=== PATIENT | female | born 1975 | race Two or more races ===

== ENCOUNTER 2016-06-26 09:05 | Emergency (ER) | payer OTHER ==
[2016-06-26 09:11] VITALS: BP 132/78; PULSE 54; TEMP 98; BMI 36.3
[2016-06-26] MEDS ORDERED: OXYCODONE/APAP 5/325MG COMBO TABLET PO ONE (10:11)
[2016-06-26] MEDS ORDERED: OXYCODONE/APAP 5/325MG COMBO TABLET ONE (10:14)
== END 2016-06-26 13:02 | disposition home or self-care (01) ==
LOC: JERFT 09:05
DX: S30.0XXA Contusion of lower back and pelvis, initial encounter (principal); W10.9XXA Fall (on) (from) unspecified stairs and steps, initial encounter; Y93.9 Activity, unspecified; Y92.009 Unspecified place in unspecified non-institutional (private) residence as the place of occurrence of the external cause; E11.9 Type 2 diabetes mellitus without complications; I10 Essential (primary) hypertension
CPT/HCPCS: 72100-TC; 73523-TC; 99281-25

== ENCOUNTER 2017-11-21 09:10 | Emergency (ER) | payer OTHER ==
[2017-11-21 09:14] VITALS: TEMP 98.5; BMI 36.0
--- NOTE | 2017-11-21 09:16 | PDOC ---
History of Present Illness - General Chief Complaint: Pain Stated Complaint: "SWOLLEN GLANDS" Time Seen by Provider: 11/21/17 09:16 History Source: Patient Exam Limitations: No Limitations - History of Present Illness Initial Comments: 11/21/17 10:39 Ms Ponce is a 42 yo F who presents to the ER with a complaint of feeling ill and having swollen glands and feeling ill pt states that almost 2 weeks ago, she used a shampoo and thinks it irritated her scalp She has been trying to use home remedies with little improvement She has noted that her scalp is scabbed Over the past 5 days, she has notes swelling of her glands in her neck Patient states she has also had diffuse headaches, particularly on her scalp where she's noticed scabbing. No fevers or chills. She has noted no body aches. No recent travel. No cough, she has noted sneezing. She hasn't taking Tylenol and Motrin with little improvement. She also has noted nausea, vomiting (4 days ago as well as yesterday). She's noted decreased by mouth intake. She is noted lymph nodes in her neck and beneath her jaw. No lymph nodes in the supraclavicular area, no lymph nodes in her groin or under arms. She became concerned because she was diagnosed as having leukemia approximately 3 years ago and has never been treated, was told by her oncologist that she needed to be cautious about swollen lymph nodes. PMH: Hypertension, prediabetes, chronic lymphocytic leukemia (diagnosed 3 years ago, never treated, not currently being treated) Past surgical history: Denies PMD: [facility] [place]: Dr. [phone] Patient's: HCTZ, ramipril GENERAL/CONSTITUTIONAL: Yes: weakness No: fever, chills, loss of appetite. HEAD, EYES, EARS, NOSE AND THROAT: Yes: lymphadenopathy No: change in vision, ear pain, discharge, sore throat, throat swelling. CARDIOVASCULAR: No: chest pain, lightheadedness, palpitations, syncope RESPIRATORY: No: cough, shortness of breath, wheezing, hemoptysis, stridor. GASTROINTESTINAL: Yes: nausea, vomiting No: diarrhea, abdominal pain GENITOURINARY: No: dysuria, hematuria, frequency, urgency, flank pain. MUSCULOSKELETAL: No: back pain, neck pain, joint pain, muscle swelling or pain SKIN AND BREASTS: No: lesions, pallor, rash or easy bruising. NEUROLOGIC: No: headache, vertigo, paresthesias, weakness ENDOCRINE: No: unexplained weight gain or loss HEMATOLOGIC/LYMPHATIC: No: anemia, easy bleeding, swelling nodes. GENERAL: The patient is in no acute distress. HEAD: Normal with no signs of trauma. EYES: PERRLA, EOMI, sclera anicteric, conjunctiva clear. ENT: Ears normal, nares patent, oropharynx clear without exudates. Moist mucous membranes. Uvula midline, no tonsillar enlargement or exudate NECK: Normal range of motion, supple (+) lymphadenopathy noted LUNGS: Breath sounds equal, clear to auscultation bilaterally. No wheezes, and no crackles. HEART:Regular rate and rhythm, normal S1 and S2 without murmur, rub or gallop. ABDOMEN: Soft, nontender, normoactive bowel sounds. No guarding, no rebound. No masses palpable. EXTREMITIES: Normal range of motion, no edema. No clubbing or cyanosis. No erythema, or tenderness. NEUROLOGICAL: Cranial nerves II through XII grossly intact. Normal speech. No focal neurological deficits. MUSCULOSKELETAL: Back non-tender to palpation, no CVA tenderness SKIN: Warm, Dry, normal turgor, no rashes or lesions noted. 11/21/17 10:53 11/22/17 08:28 Past History - Past Medical History Allergies/Adverse Reactions: Allergies Allergy/AdvReac Type Severity Reaction Status Date / Time amoxicillin [From Augmentin] Allergy Verified 11/21/17 21:24 clavulanic acid Allergy Verified 11/21/17 21:25 [From Augmentin] Home Medications: Ambulatory Orders Amoxicillin/Potassium Clav [Augmentin 875-125 Tablet] 1 each PO BID #14 tablet 11/21/17 Hydrochlorothiazide [Hctz -] 25 mg PO DAILY 11/21/17 Ondansetron HCl [Zofran] 4 mg PO BID PRN #10 tablet 11/21/17 Ramipril mg PO DAILY 11/21/17 Anemia: No (LEUKEMIA) Cancer: (LEUKEMIA) COPD: No Diabetes: Yes (PREDIABETES) HTN: Yes - Suicide/Smoking/Psychosocial Hx Smoking History: Never smoked Have you smoked in the past 12 months: No Hx Alcohol Use: No Drug/Substance Use Hx: No Substance Use Type: Alcohol *Physical Exam - Vital Signs Last Vital Signs Temp Pulse Resp BP Pulse Ox 98.5 F 60 18 166/97 100 11/21/17 09:10 11/21/17 09:10 11/21/17 09:10 11/21/17 09:10 11/21/17 09:10 ED Treatment Course - LABORATORY CBC & Chemistry Diagram: 11/21/17 09:45 11/21/17 09:45 Medical Decision Making - Medical Decision Making 11/21/17 10:39 Laboratory Tests 11/21/17 11/21/17 09:45 09:45 WBC 22.4 H Hgb 11.9 Hct 35.3 Plt Count 214 Sodium 135 L Potassium 3.6 Chloride 102 Carbon Dioxide 26 BUN 7 Creatinine < 0.8 Random Glucose 123 H AST 45 H ALT 51 H 11/21/17 10:52 Pt states she feels a bit better Call placed to pt Oncologist for further information Unclear if leukocytosis is due to leukemia or acute infectious pathology??? 11/21/17 11:13 Second call placed to Dr Crespo 11/21/17 11:58 Laboratory Tests 11/21/17 11/21/17 11/21/17 09:45 09:45 10:40 WBC 22.4 H Hgb 11.9 Hct 35.3 Plt Count 214 Sodium 135 L Potassium 3.6 Chloride 102 Carbon Dioxide 26 BUN 7 Creatinine < 0.8 Random Glucose 123 H AST 45 H ALT 51 H Urine Ketones Negative Urine Blood Negative Urine Nitrite Negative Ur Leukocyte Esterase Negative Urine HCG, Qual 11/21/17 10:40 WBC Hgb Hct Plt Count Sodium Potassium Chloride Carbon Dioxide BUN Creatinine Random Glucose AST ALT Urine Ketones Urine Blood Urine Nitrite Ur Leukocyte Esterase Urine HCG, Qual Negative No call back received from pt pmd UA negative Pt states her symptoms have improved and her WMC is typically 21-25 Pending CXR will give Augmentin for scalp issue as I wonder if this is causing a reactive lymphadenopathy? 11/21/17 12:24 I have confirmed with this patient's oncologist that her white blood cell count is stable, at her baseline. Plans are still pending. Lab was contacted regarding this number. X-ray still pending 11/21/17 13:00 CXR as read by me No acute infiltrate Will discharge to home Will ask pt to follow up with Dr Crespo Will give augmentin for scalp irritation *DC/Admit/Observation/Transfer Diagnosis at time of Disposition: Scalp irritation - Discharge Dispostion Disposition: HOME Condition at time of disposition: Stable Decision to Admit order: No - Prescriptions Prescriptions: Amoxicillin/Potassium Clav [Augmentin 875-125 Tablet] 1 each PO BID #14 tablet Ondansetron HCl [Zofran] 4 mg PO BID PRN #10 tablet PRN Reason: Nausea - Referrals - Patient Instructions Printed Discharge Instructions: DI for Rash Additional Instructions: Ms Ponce Thanks for coming in to the ER Please be sure to follow up with Dr Crespo Please monitor your temperature Please take antibiotics as prescribed Return to the ER for worsening symptoms, any other concerns or complaints - Post Discharge Activity Forms/Work/School Notes: Back to Work
[2017-11-21] MEDS ORDERED: ACETAMINOPHEN 1000 MG/100 ML VIAL (NON FORMULARY) IVPB ONE (09:41)
[2017-11-21] MEDS ORDERED: SODIUM CHLORIDE 1,000 ML IV STA (09:41)
[2017-11-21] MEDS ORDERED: ACETAMINOPHEN INJECTION 100 ML IVPB ONE (09:59)
[2017-11-21 10:14] LABS: HEMATOCRIT 35.3 % (32.4-45.2); HEMOGLOBIN 11.9 GM/dl (10.7-15.3); MCH 29.2 pg (25.7-33.7); MCHC 33.8 g/dl (32.0-36.0); MEAN CELL VOLUME 86.5 fl (80-96); MEAN PLT VOLUME 10.2 fl (7.5-11.1); PLATELET COUNT 214 K/MM3 (134-434); RBC 4.08 M/mm3 (3.60-5.2); RDW 15.1 % (11.6-15.6); WHITE BLOOD COUNT 22.4 K/mm3 (4.0-10.8)
[2017-11-21 10:24] LABS: ADD RBC MORPHOLOGY YES; ALBUMIN 3.5 g/dl (3.5-5.0); ALK PHOS 77 U/L (32-92); ANION GAP 7 (8-16); BLOOD UREA NITROGEN 7 mg/dl (7-18); CALCIUM 8.6 mg/dl (8.4-10.2); CHLORIDE 102 mmol/L (98-107); CO2 26 mmol/L (22-28); GLUCOSE,RANDOM 123 mg/dl (74-106); POTASSIUM 3.6 mmol/L (3.5-5.1); SGOT/AST 45 U/L (10-42); SGPT/ALT 51 U/L (10-40); SODIUM 135 mmol/L (136-145); TOT PROT 6.9 g/dl (6.4-8.3)
[2017-11-21 10:31] LABS: BILIRUBIN,TOTAL < 0.5 mg/dl (0.2-1.0); CREATININE < 0.8 mg/dl (0.6-1.3)
[2017-11-21 10:57] VITALS: BP 127/67; PULSE 61
[2017-11-21 11:33] LABS: PLATELET ESTIMATE ADEQUATE
[2017-11-21 11:55] LABS: PH,URINE 6.5 (4.5-8); URINE APPEARANCE Clear; URINE BILIRUBIN Negative (NEGATIVE); URINE BLOOD Negative (NEGATIVE); URINE COLOR YELLOW; URINE GLUCOSE (UA) Negative (NEGATIVE); URINE KETONE Negative (NEGATIVE); URINE LEUK ESTERASE Negative (NEGATIVE); URINE NITRITE Negative (NEGATIVE); URINE PROTEIN Negative (NEGATIVE); URINE UROBILINOGEN 0.2 (0.2-1.0)
== END 2017-11-21 13:20 | disposition home or self-care (01) ==
LOC: FER 09:10
PROC: 3E033NZ Introduction of Analgesics, Hypnotics, Sedatives into Peripheral Vein, Percutaneous Approach (ICD-10-PCS; principal; 2017-11-21)
PROC: 3E0337Z Introduction of Electrolytic and Water Balance Substance into Peripheral Vein, Percutaneous Approach (ICD-10-PCS; 2017-11-21)
DX: R23.9 Unspecified skin changes (principal)
CPT/HCPCS: 36415; 71046-TC-FY; 80053; 81003; 84703; 85025; 86308; 87040; 87070; 87086; 87430; 99285-25; J0131; J7030

== ENCOUNTER 2017-11-21 20:34 | Emergency (ER) | payer OTHER ==
[2017-11-21 20:39] VITALS: BP 151/88; PULSE 82; TEMP 98.4; BMI 36.0
--- NOTE | 2017-11-21 21:06 | PDOC ---
History of Present Illness - General History Source: Patient Exam Limitations: No Limitations - History of Present Illness Initial Comments: 11/21/17 21:14 A portion of this note was documented by scribe services under my direction. I have reviewed the details of the note, within reason, and agree with the documentation. The case summary and management plan written by me. Assessment and plan: This is a 42-year-old female who was here earlier for some scalp discomfort secondary to a shampoo that she thought maybe had burned her scalp. Patient was started on some Augmentin for questionable scalp infection however patient took her first dose of Augmentin and felt like her throat was closing up so she came in for evaluation. On my evaluation there was no angioedema of the oropharynx there was good air entry bilateral rales no wheezing She was in no distress. Patient was offered ibuprofen she said she takes 2 800 mg at a time so was given a dose even though is a large dose patient is 104 kg woman and tolerates a dose well according to her. Patient was told to stop the Augmentin and get some yqau-zuz-afojxmx antibiotic ointment and put it on the scalp instead of taking antibiotics as it does not appear to be infected there was no purulent discharge, minimal erythema and no swelling. Patient however does have a viral pharyngitis, and throat her throat and pharynx discomfort are likely related to the viral pharyngitis as there is no evidence of an acute ALLERGIC reaction. Patient discharged home <Tony Mcbride I - Last Filed: 11/21/17 21:14> - History of Present Illness Initial Comments: 11/21/17 21:18 The patient is a 42 year old female, with a significant PMH of leukemia who presents to the emergency department with throat discomfort after taking medication today. Patient was seen earlier for some scalp discomfort and irritation and was started on augmentin. Patient reports she felt her throat closing up approximately 30 minutes after taking first dose of augmentin. Patient denies any other complaints. The patient denies chest pain, shortness of breath, headache and dizziness. Denies fever, chills, nausea, vomit, diarrhea and constipation. Denies dysuria, frequency, urgency and hematuria. Allergies: NKA Past surgical history: None reported. Social history: No reported alcohol, drug, or cigarette use. Adult ROS General: No fevers or chills, no weakness, no weight loss HEENT: (+) Throat discomfort. No change in vision. No ear pain CardioVascular: No chest pain or shortness of breath Respiratory:No cough, or wheezing. Gastrointestinal: no nausea, vomiting, diarrhea or constipation, No rectal bleeding Genitourinary: No dysuria, hematuria, or frequency Musculoskeletal: No joint or muscle pain or swelling Neurologic: No headache, vertigo, dizziness or loss of consciousness Psychiatric: nor depression Skin: No rashes or easy bruising Endocrine: no increased thirst or abnormal weight change Allergic: no skin or latex allergy All other systems reviewed and normal Adult Exam: General: Well-nourished well-developed individual, no acute distress HEENT: Throat: (+) Mild erythema. Normal, tonsils normal, no exudates. Neck: Supple, no meningeal signs, no lymphadenopathy Eyes::Pupils equal reactive and round, extraocular motion intact Chest: Nontender to palpation Cardiac: S1-S2 normal, regular rate and rhythm, no murmurs rubs or gallops Respiratory: Lungs clear to auscultation bilateral Abdomen: Soft, nondistended, normal bowel sounds, nontender to palpation diffusely Extremities: Warm, dry, no cyanosis, clubbing, or edema Skin: No rashes Neuro: Alert and oriented x3, nonfocal exam, grossly intact, normal gait Psych: Normal mood and affect <Gerri Bowers - Last Filed: 11/21/17 21:21> - General Chief Complaint: Respiratory Stated Complaint: "THROAT DISCOMFORT" AFTER TAKING ANTIBIOTICS Time Seen by Provider: 11/21/17 20:45 Past History - Past Medical History Anemia: (LEUKEMIA) Cancer: (LEUKEMIA) COPD: No Diabetes: Yes (PREDIABETES) HTN: Yes - Suicide/Smoking/Psychosocial Hx Smoking History: Never smoked Have you smoked in the past 12 months: No Hx Alcohol Use: No Drug/Substance Use Hx: No Substance Use Type: Alcohol <Tony Mcbride I - Last Filed: 11/21/17 21:14> <Gerri Bowers - Last Filed: 11/21/17 21:21> - Past Medical History Allergies/Adverse Reactions: Allergies Allergy/AdvReac Type Severity Reaction Status Date / Time No Known Allergies Allergy Verified 11/21/17 20:35 Home Medications: Ambulatory Orders Amoxicillin/Potassium Clav [Augmentin 875-125 Tablet] 1 each PO BID #14 tablet 11/21/17 Hydrochlorothiazide [Hctz -] 25 mg PO DAILY 11/21/17 Ondansetron HCl [Zofran] 4 mg PO BID PRN #10 tablet 11/21/17 Ramipril mg PO DAILY 11/21/17 *Physical Exam - Vital Signs Last Vital Signs Temp Pulse Resp BP Pulse Ox 98.4 F 82 18 151/88 100 11/21/17 20:34 11/21/17 20:34 11/21/17 20:34 11/21/17 20:34 11/21/17 20:34 <Tony Mcbride I - Last Filed: 11/21/17 21:14> - Vital Signs Last Vital Signs Temp Pulse Resp BP Pulse Ox 98.4 F 82 18 151/88 100 11/21/17 20:34 11/21/17 20:34 11/21/17 20:34 11/21/17 20:34 11/21/17 20:34 <Gerri Bowers - Last Filed: 11/21/17 21:21> *DC/Admit/Observation/Transfer - Discharge Dispostion Decision to Admit order: No <Tony Mcbride I - Last Filed: 11/21/17 21:14> - Attestations Scribe Attestion: 11/21/17 21:21 Documentation prepared by Gerri Bowers, acting as manager medical for Tony Mcbride MD. <Gerri Bowers - Last Filed: 11/21/17 21:21> Diagnosis at time of Disposition: Acute viral pharyngitis - Discharge Dispostion Condition at time of disposition: Stable - Patient Instructions Additional Instructions: Continue to take the ibuprofen as needed for pain or fevers. Get some phtr-ikn-iatzukw antibiotic ointment applied to the area of her scalp that is affected. Return to the emergency department immediately with ANY new, persistent or worsening symptoms. Continue any medications as previously prescribed by your physician. You should follow up with your primary doctor as soon as possible regarding today's emergency department visit. . Please make sure your doctor reviews the results of your emergency evaluation. Thank you for coming to the Emergency Department today for your care. It was a pleasure to see you today. Please note that your evaluation is INCOMPLETE until you follow-up with your doctor.
[2017-11-21] MEDS ORDERED: IBUPROFEN 400 MG TABLET (FP) PO ONE ×2 (21:14→21:23)
[2017-11-21] MEDS ORDERED: IBUPROFEN 600 MG TABLET (FP) PO ONE (21:23)
--- NOTE | 2017-11-21 21:36 | PDOC ---
*Physical Exam - Vital Signs Last Vital Signs Temp Pulse Resp BP Pulse Ox 98.4 F 82 18 151/88 100 11/21/17 20:34 11/21/17 20:34 11/21/17 20:34 11/21/17 20:34 11/21/17 20:34 <Tony Mcbride I - Last Filed: 11/21/17 21:35> - Vital Signs Last Vital Signs Temp Pulse Resp BP Pulse Ox 98.4 F 82 18 151/88 100 11/21/17 20:34 11/21/17 20:34 11/21/17 20:34 11/21/17 20:34 11/21/17 20:34 - Physical Exam Comments: 11/21/17 21:37 Adult Exam: General: Well-nourished well-developed individual, no acute distress HEENT: Scalp: (+) Mild erythema. No purulent discharge. Throat: (+) Posterior mild erythema. Tonsils are not enlarged, no exudates. Neck: Supple, no meningeal signs, (+) Submandibular lymphadenopathy. No angioedema. Eyes::Pupils equal reactive and round, extraocular motion intact Chest: Nontender to palpation Cardiac: S1-S2 normal, regular rate and rhythm, no murmurs rubs or gallops Respiratory: Good air entry. No wheezing. Extremities: Warm, dry, no cyanosis, clubbing, or edema Skin: No rashes Neuro: Alert and oriented x3, nonfocal exam, grossly intact, normal gait Psych: Normal mood and affect <Gerri Bowers - Last Filed: 11/21/17 21:40> ED Treatment Course - Medications Given in the ED: ED Medications Discontinued Medications Generic Name Dose Route Start Last Admin Trade Name Freq PRN Reason Stop Dose Admin Ibuprofen 1,600 mg 11/21/17 21:14 11/21/17 21:27 Motrin - PO 11/21/17 21:15 1,600 mg ONCE ONE Administration <Tony Mcbride I - Last Filed: 11/21/17 21:35> - Medications Given in the ED: ED Medications Discontinued Medications Generic Name Dose Route Start Last Admin Trade Name Freq PRN Reason Stop Dose Admin Ibuprofen 1,600 mg 11/21/17 21:14 11/21/17 21:27 Motrin - PO 11/21/17 21:15 1,600 mg ONCE ONE Administration <Gerri Bowers - Last Filed: 11/21/17 21:40> Progress Note - Progress Note Progress Note: The purpose of this chart is solely for documentation of the physical exam on this patient as I accidentally closed the other chart prior to completion of the physical exam.. <Tony Mcbride I - Last Filed: 11/21/17 21:35> *DC/Admit/Observation/Transfer <Tony Mcbride I - Last Filed: 11/21/17 21:35> - Attestations Scribe Attestion: 11/21/17 21:40 Documentation prepared by Gerri Bowers, acting as bio medical technician for Tony Mcbride MD. <Gerri Bowers - Last Filed: 11/21/17 21:40> Diagnosis at time of Disposition: Acute viral pharyngitis - Discharge Dispostion Disposition: HOME Condition at time of disposition: Stable - Patient Instructions Additional Instructions: Continue to take the ibuprofen as needed for pain or fevers. Get some mnkc-zvk-oznrkjq antibiotic ointment applied to the area of her scalp that is affected. Return to the emergency department immediately with ANY new, persistent or worsening symptoms. Continue any medications as previously prescribed by your physician. You should follow up with your primary doctor as soon as possible regarding today's emergency department visit. . Please make sure your doctor reviews the results of your emergency evaluation. Thank you for coming to the Emergency Department today for your care. It was a pleasure to see you today. Please note that your evaluation is INCOMPLETE until you follow-up with your doctor.
== END 2017-11-21 21:38 | disposition home or self-care (01) ==
LOC: FER 20:34
DX: J02.8 Acute pharyngitis due to other specified organisms (principal); B97.89 Other viral agents as the cause of diseases classified elsewhere; C95.90 Leukemia, unspecified not having achieved remission
CPT/HCPCS: 99282-25

== ENCOUNTER 2018-06-26 22:40 | Emergency (ER) | payer OTHER ==
[2018-06-26 22:49] VITALS: BMI 35.6
[2018-06-26] MEDS ORDERED: ACETAMINOPHEN 325 MG TABLET (FP) PO ONE (23:21)
[2018-06-26] MEDS ORDERED: ACETAMINOPHEN 325 MG TABLET (FP) ONE (23:35)
[2018-06-27 00:12] LABS: BASO % 0.3 % (0-2.0); EOS % 0.1 % (0-4.5); HEMATOCRIT 30.8 % (32.4-45.2); HEMOGLOBIN 10.4 GM/dL (10.7-15.3); LYMPH % 45.2 % (8-40); MCH 26.1 pg (25.7-33.7); MCHC 33.7 g/dl (32.0-36.0); MEAN CELL VOLUME 77.5 fl (80-96); MEAN PLT VOLUME 9.5 fl (7.5-11.1); MONO % 2.7 % (3.8-10.2); NEUT % 51.7 % (42.8-82.8); PLATELET COUNT 188 K/MM3 (134-434); RBC 3.98 M/mm3 (3.60-5.2); RDW 16.1 % (11.6-15.6); WHITE BLOOD COUNT 9.7 K/mm3 (4.0-10.0)
--- NOTE | 2018-06-27 00:21 | PDOC ---
History of Present Illness - General Chief Complaint: Chest Pain Stated Complaint: CHEST PAIN Time Seen by Provider: 06/26/18 23:03 History Source: Patient Exam Limitations: No Limitations Past History - Past Medical History Allergies/Adverse Reactions: Allergies Allergy/AdvReac Type Severity Reaction Status Date / Time No Known Allergies Allergy Verified 06/26/18 22:49 Home Medications: Ambulatory Orders Amoxicillin/Potassium Clav [Augmentin 875-125 Tablet] 1 each PO BID #14 tablet 11/21/17 Hydrochlorothiazide [Hctz -] 25 mg PO DAILY 11/21/17 Ondansetron HCl [Zofran] 4 mg PO BID PRN #10 tablet 11/21/17 Ramipril mg PO DAILY 11/21/17 Anemia: Yes (LEUKEMIA) Cancer: (LEUKEMIA) COPD: No Diabetes: Yes HTN: Yes - Suicide/Smoking/Psychosocial Hx Smoking History: Never smoked Have you smoked in the past 12 months: No Hx Alcohol Use: No Drug/Substance Use Hx: No Substance Use Type: Alcohol *Physical Exam - Vital Signs Last Vital Signs Temp Pulse Resp BP Pulse Ox 99.9 F H 94 H 18 156/78 99 06/26/18 22:47 06/26/18 22:47 06/26/18 22:47 06/26/18 22:47 06/26/18 22:47 - Physical Exam General Appearance: No: Apparent Distress Respiratory/Chest: positive: Lungs Clear, Normal Breath Sounds. negative: Respiratory Distress Cardiovascular: positive: Regular Rhythm, Regular Rate, S1, S2. negative: Murmur Gastrointestinal/Abdominal: positive: Normal Bowel Sounds, Soft. negative: Tender, Distended, Guarding, Rebound Extremity: positive: Normal Inspection. negative: Pedal Edema, Calf Tenderness Integumentary: positive: Normal Color Neurologic: positive: Fully Oriented, Alert, Normal Mood/Affect Moderate Sedation - Procedure Monitoring Vital Signs: Procedure Monitoring Vital Signs Temperature 99.9 F H 06/26/18 22:47 Pulse Rate 94 H 06/26/18 22:47 Respiratory Rate 18 06/26/18 22:47 Blood Pressure 156/78 06/26/18 22:47 O2 Sat by Pulse Oximetry (%) 99 06/26/18 22:47 ED Treatment Course - LABORATORY CBC & Chemistry Diagram: 06/26/18 23:55 06/26/18 23:55 - ADDITIONAL ORDERS Additional order review: 06/26/18 23:55 RBC 3.98 MCV 77.5 L MCHC 33.7 RDW 16.1 H MPV 9.5 Neutrophils % 51.7 Lymphocytes % 45.2 H Monocytes % 2.7 L Eosinophils % 0.1 Basophils % 0.3 - RADIOLOGY Radiology Studies Ordered: Category Date Time Status CHEST PA & LAT [RAD] Stat Radiology 06/26/18 23:21 Ordered - Medications Given in the ED: ED Medications Discontinued Medications Generic Name Dose Route Start Last Admin Trade Name Antonio PRN Reason Stop Dose Admin Acetaminophen 650 mg 06/26/18 23:21 06/26/18 23:35 Tylenol - PO 06/26/18 23:22 650 mg ONCE ONE Administration Medical Decision Making - Medical Decision Making 42 y/o F hx of CLL x 4 years (never started on any tx, follows with oncologist) , HTN presents with fever today of 101 along with sweats, chills, body aches, headache and 2 episodes of NBNB emesis. Also mentions having constant pain across chest, sharp in nature, worse with deep breaths. Denies cough, sore throat, sob, diarrhea, urinary complaints. Denies smoking or drug use. No FH of CAD or MT Consider probable viral syndrome/flu; also r/o PNA Less suspicious for ACS given no risk factors EKG: NSR at 91 bpm, no ST-T changes, LVH Plan: Labs, CXR, flu swab, Tylenol No need for IVF given patient tolerating PO and denies nausea currently 06/27/18 00:17 Labs reviewed and unremarkable Flu negative CXR negative for PNA Likely viral syndrome; supportive care discussed Stable for d/c 06/27/18 01:52 *DC/Admit/Observation/Transfer Diagnosis at time of Disposition: Viral URI - Discharge Dispostion Disposition: HOME Condition at time of disposition: Stable Decision to Admit order: No - Referrals - Patient Instructions Printed Discharge Instructions: DI for Viral Upper Respiratory Infection -- Adult Additional Instructions: Thank you for choosing [facility]. It was a pleasure taking care of you. Your labs were unremarkable Your chest xray showed no sign of PNA Likely you have viral illness, which can take some time to resolve Be sure to drink at least 2L of water daily Follow-up with your PCP in 3 days. Return to the Emergency Department if your symptoms worsen or persist or have other concerning symptoms. - Post Discharge Activity
[2018-06-27 01:05] LABS: ANION GAP 8 MMOL/L (8-16); BLOOD UREA NITROGEN 5 mg/dL (7-18); CALCIUM 8.2 mg/dL (8.5-10.1); CHLORIDE 104 mmol/L (98-107); CO2 25 mmol/L (21-32); CREATININE 0.8 mg/dL (0.55-1.3); GLUCOSE,RANDOM 129 mg/dL (74-106); POTASSIUM 3.8 mmol/L (3.5-5.1); SODIUM 136 mmol/L (136-145)
[2018-06-27 02:24] VITALS: BP 136/72; PULSE 88; TEMP 98.1
--- NOTE | 2018-06-27 08:40 | EKG ---
Test Reason : Blood Pressure : / mmHG Vent. Rate : 091 BPM Atrial Rate : 091 BPM P-R Int : 162 ms QRS Dur : 090 ms QT Int : 370 ms P-R-T Axes : 051 002 045 degrees QTc Int : 455 ms NORMAL SINUS RHYTHM POSSIBLE LEFT ATRIAL ENLARGEMENT LEFT VENTRICULAR HYPERTROPHY ABNORMAL ECG WHEN COMPARED WITH ECG OF 04-OCT-2009 12:56, NO SIGNIFICANT CHANGE WAS FOUND Confirmed by YOAN SPARKS, DAKOTA ([id number]) on 06/27/2018 8:40:46 AM Referred By: Confirmed By:DAKOTA MILTON MD
== END 2018-06-27 02:23 | disposition home or self-care (01) ==
LOC: JER 22:40
DX: J06.9 Acute upper respiratory infection, unspecified (principal); B97.89 Other viral agents as the cause of diseases classified elsewhere; I10 Essential (primary) hypertension; E11.9 Type 2 diabetes mellitus without complications; Z85.6 Personal history of leukemia
CPT/HCPCS: 36415; 71046-TC-FY; 80048; 84484; 84703; 85025; 87804; 93005; 93010; 99281-25

== ENCOUNTER 2018-09-07 01:25 | Emergency (ER) | payer OTHER ==
[2018-09-07 02:47] VITALS: PULSE 71; TEMP 98; BMI 36.0
[2018-09-07] MEDS ORDERED: METOCLOPRAMIDE HCL INJECTION 10 MG/2 ML VIAL IVPB ONE (03:35)
[2018-09-07] MEDS ORDERED: SODIUM CHLORIDE 1,000 ML IV STA (03:35)
[2018-09-07] MEDS ORDERED: METOCLOPRAMIDE HCL INJECTION 10 MG/2 ML VIAL ONE (03:39)
[2018-09-07 04:05] LABS: BASO % 0.3 % (0-2.0); EOS % 0.8 % (0-4.5); HEMATOCRIT 38.4 % (32.4-45.2); HEMOGLOBIN 12.7 GM/dL (10.7-15.3); LYMPH % 46.4 % (8-40); MCH 25.6 pg (25.7-33.7); MCHC 32.9 g/dl (32.0-36.0); MEAN CELL VOLUME 77.7 fl (80-96); MONO % 4.4 % (3.8-10.2); NEUT % 48.1 % (42.8-82.8); PLATELET COUNT 243 K/MM3 (134-434); RBC 4.94 M/mm3 (3.60-5.2); RDW 17.9 % (11.6-15.6); WHITE BLOOD COUNT 18.7 K/mm3 (4.0-10.0)
[2018-09-07 04:37] LABS: LIPASE 117 U/L (73-393); MAGNESIUM 1.8 mg/dL (1.8-2.4)
[2018-09-07 04:40] LABS: ALBUMIN 3.8 g/dl (3.4-5.0); ALK PHOS 104 U/L (45-117); ANION GAP 7 MMOL/L (8-16); BILIRUBIN,TOTAL 0.2 mg/dL (0.2-1); BLOOD UREA NITROGEN 12 mg/dL (7-18); CALCIUM 8.8 mg/dL (8.5-10.1); CHLORIDE 99 mmol/L (98-107); CO2 28 mmol/L (21-32); CREATININE 0.8 mg/dL (0.55-1.3); GLUCOSE,RANDOM 115 mg/dL (74-106); POTASSIUM 3.5 mmol/L (3.5-5.1); SGOT/AST 35 U/L (15-37); SGPT/ALT 38 U/L (13-61); SODIUM 134 mmol/L (136-145); TOT PROT 8.3 g/dl (6.4-8.2)
--- NOTE | 2018-09-07 05:09 | PDOC ---
History of Present Illness - General Chief Complaint: Chest Pain Stated Complaint: CHEST PAIN,LEFT ARM PAIN Time Seen by Provider: 09/07/18 03:43 History Source: Patient Exam Limitations: No Limitations - History of Present Illness Initial Comments: 09/07/18 05:03 42 yo F with a hx of HTN, leukemia (on surveillance, no chemotherapy) and DM presents to the emergency department with left arm pain with concurrent chest pain and headaches for 1 day. Per the patient, she has not been taking her medications for the past 2-3 months and a recent urgent care visit showed her SBP in the 170s. Per the patient, she states that she has been having chest pain for 2 months with radiation to the neck, but denies diaphoresis. She states that she began having left arm pain that is new that feels like a tightness in the bicep. Denies nausea and vomiting and diaphoresis. Denies the following: SOB, abdominal pain dysuria, hematuria, diarrhea, hematochezia, and leg pain/swelling. No hx of DVT/PE and recent surgeries. Past History - Past Medical History Allergies/Adverse Reactions: Allergies Allergy/AdvReac Type Severity Reaction Status Date / Time No Known Allergies Allergy Verified 09/07/18 02:42 Home Medications: Ambulatory Orders Amoxicillin/Potassium Clav [Augmentin 875-125 Tablet] 1 each PO BID #14 tablet 11/21/17 Hydrochlorothiazide [Hctz -] 25 mg PO DAILY 11/21/17 Ondansetron HCl [Zofran] 4 mg PO BID PRN #10 tablet 11/21/17 Ramipril mg PO DAILY 11/21/17 Anemia: Yes (LEUKEMIA) Cancer: (LEUKEMIA) COPD: No Diabetes: Yes HTN: Yes - Immunization History Immunization Up to Date: No - Suicide/Smoking/Psychosocial Hx Smoking History: Never smoked Have you smoked in the past 12 months: No Information on smoking cessation initiated: No Hx Alcohol Use: No Drug/Substance Use Hx: No Substance Use Type: Alcohol Review of Systems - Review of Systems Able to Perform ROS?: Yes Is the patient limited Occitan proficient: No Constitutional: No: Chills, Diaphoresis, Fever HEENTM: No: Eye Pain, Recent change in vision, Ear Pain, Nose Pain, Throat Pain , Mouth Pain Respiratory: No: Cough, Shortness of Breath, Hemoptysis Cardiac (ROS): Yes: Chest Pain, Chest Tightness. No: Lightheadedness, Palpitations ABD/GI: No: Constipated, Diarrhea, Nausea, Rectal Bleeding, Vomiting, Tarry Stools : No: Burning, Dysuria, Hematuria, Urgency Musculoskeletal: No: Back Pain, Joint Pain, Neck Pain Integumentary: No: Bruising, Erythema, Sweating Neurological: Yes: Headache. No: Numbness, Tingling, Tremors, Dizziness Psychiatric: No: Change in Appetite Endocrine: No: Unexplained Weight Gain Hematologic/Lymphatic: No: Anemia *Physical Exam - Vital Signs Last Vital Signs Temp Pulse Resp BP Pulse Ox 98.0 F 71 17 118/75 99 09/07/18 01:09/07/18 01:09/07/18 01:09/07/18 01:09/07/18 01:25 - Physical Exam General Appearance: Yes: Nourished, Appropriately Dressed. No: Apparent Distress, Intoxicated HEENT: positive: EOMI, PRISCILLA, Normal Voice, Symmetrical, Pharynx Normal, Hearing Grossly Normal. negative: Pale Conjunctivae, Scleral Icterus (R), Scleral Icterus (L), Muffled/Hoarse voice, Pharyngeal Erythema, Tonsillar Exudate, Tonsillar Erythema, Nasal Congestion, Rhinorrhea, Excessive drooling Neck: positive: Trachea midline, Supple. negative: Tender, Lymphadenopathy (R) , Lymphadenopathy (L), Tender lateral, Tender midline Respiratory/Chest: positive: Lungs Clear, Normal Breath Sounds. negative: Chest Tender, Respiratory Distress, Accessory Muscle Use Cardiovascular: positive: Regular Rhythm, Regular Rate, S1, S2. negative: Systolic Murmur Gastrointestinal/Abdominal: positive: Normal Bowel Sounds, Flat, Soft. negative : Tender, Distended, Guarding, Rebound Lymphatic: negative: Adenopathy Musculoskeletal: positive: Normal Inspection. negative: CVA Tenderness, Decreased Range of Motion, Vertebral Tenderness Extremity: positive: Normal Capillary Refill, Normal Inspection, Normal Range of Motion. negative: Tender, Swelling, Calf Tenderness Integumentary: positive: Normal Color, Dry, Warm. negative: Rash, Swelling Neurologic: positive: post manager II-XII NML intact, Fully Oriented, Alert, Normal Mood/ Affect, Normal Response, Motor Strength 5/5. negative: EOM Palsy, Facial Droop , Sensory Deficit Moderate Sedation - Procedure Monitoring Vital Signs: Procedure Monitoring Vital Signs Temperature 98.0 F 09/07/18 01:25 Pulse Rate 71 09/07/18 01:25 Respiratory Rate 17 09/07/18 01:25 Blood Pressure 118/75 09/07/18 01:25 O2 Sat by Pulse Oximetry (%) 99 09/07/18 01:25 Heart Score/ECG Review - History History: Slightly suspicious - Electrocardiogram EKG: Normal - Age Age: </= 45 - Risk Factors Risk Factors Heart Score: Yes Hx Hypertension, Yes Hx Diabetes, Yes Hx Obesity Based on the list above the patient has:: >/=3 risk factors or Hx atherosclerotic disease - Troponin Troponin: </= normal limit - Score Heart Score - Total: 2 - ECG Intrepretation Comment:: ventricular rate is 65 bpm, CT is 162 ms, QRS is 84 ms, and QTc is 478 ms. NSR with sinus arrhythmia. No ST elevation or depression. ED Treatment Course - LABORATORY CBC & Chemistry Diagram: 09/07/18 03:46 09/07/18 03:46 - ADDITIONAL ORDERS Additional order review: Laboratory Results 09/07/18 09/07/18 03:46 03:46 Sodium 134 L Potassium 3.5 Chloride 99 Carbon Dioxide 28 Anion Gap 7 L BUN 12 Creatinine 0.8 Creat Clearance w eGFR 79.05 Random Glucose 115 H Calcium 8.8 Magnesium 1.8 Total Bilirubin 0.2 AST 35 ALT 38 Alkaline Phosphatase 104 Troponin I < 0.02 Total Protein 8.3 H Albumin 3.8 Lipase 117 09/07/18 03:46 RBC 4.94 MCV 77.7 L MCHC 32.9 RDW 17.9 H MPV 10.0 Neutrophils % 48.1 Lymphocytes % 46.4 H Monocytes % 4.4 Eosinophils % 0.8 D Basophils % 0.3 - Medications Given in the ED: ED Medications Discontinued Medications Generic Name Dose Route Start Last Admin Trade Name Freq PRN Reason Stop Dose Admin Sodium Chloride 1,000 mls @ 1,000 mls/hr 09/07/18 03:35 09/07/18 03:47 Normal Saline - IV 09/07/18 04:34 1,000 mls/hr ASDIR STA Administration Metoclopramide HCl 10 mg 09/07/18 03:35 09/07/18 03:47 Reglan Injection - IVPB 09/07/18 03:36 10 mg ONCE ONE Administration Medical Decision Making - Medical Decision Making 42 yo F with a hx of HTN, leukemia (on surveillance, no chemotherapy) and DM presents to the emergency department with left arm pain with concurrent chest pain and headaches for 1 day. Initial vitals; Initial Vital Signs Temp Pulse Resp BP Pulse Ox 98.0 F 71 17 118/75 99 09/07/18 01:25 09/07/18 01:25 09/07/18 01:25 09/07/18 01:25 09/07/18 01:25 Work up: ddx: ACS rule out, pleuritis vs pericarditis vs PNA vs msk pain concerns exist that the patient has ACS given her history of leukemia, DM, HTN with the associated chest pain with radiation to the left arm. Will order cbc, cmp, trops, Urine , UA, and chest xray first troponin was negative and the WBC is 18.7 consistent with previous values. patient had no tenderness to palpation in the abdomen and CVA tenderness. The patient will get a 2nd troponin and CXR that will be signed out to the day team. *DC/Admit/Observation/Transfer Diagnosis at time of Disposition: Chest pain Qualifiers: Chest pain type: unspecified Qualified Code(s): R07.9 - Chest pain, unspecified - Discharge Dispostion Disposition: HOME Condition at time of disposition: Improved - Referrals Referrals: Hayden Simon MD [Staff Physician] - - Patient Instructions Printed Discharge Instructions: DI for Atypical Chest Pain Additional Instructions: You were seen in the emergency room today for chest pain. All of your tests were normal. I do not know the exact cause of your pain, but it could be due to the muscles. You can take tylenol for the pain as needed. I recommend making an appointment with your primary care doctor this week. I also recommend making an appointment with a intelligence operations. You can be referred to one by your primary care doctor or you can see Dr. Simon. Come back to the emergency room if pain gets worse, you have a hard time breathing, you pass out, you have palpitations or if any new concerning symptom develops. Thank you - Post Discharge Activity
[2018-09-07 06:18] LABS: URINE APPEARANCE CLEAR; URINE BILIRUBIN NEGATIVE (<2.0 mg/dL); URINE COLOR YELLOW; URINE GLUCOSE (UA) NEGATIVE (NEGATIVE); URINE KETONE NEGATIVE (NEGATIVE); URINE LEUK ESTERASE NEGATIVE (NEGATIVE); URINE NITRITE NEGATIVE (NEGATIVE); URINE PROTEIN NEGATIVE (NEGATIVE); URINE UROBILINOGEN 0.2 mg/dL (0.2-1.0)
--- NOTE | 2018-09-07 07:41 | PDOC ---
*Physical Exam - Vital Signs Last Vital Signs Temp Pulse Resp BP Pulse Ox 98.0 F 71 17 118/75 99 09/07/18 01:25 09/07/18 01:25 09/07/18 01:25 09/07/18 01:25 09/07/18 01:25 <MikepedroGage - Last Filed: 09/07/18 09:50> - Vital Signs Last Vital Signs Temp Pulse Resp BP Pulse Ox 98.0 F 71 17 118/75 99 09/07/18 01:25 09/07/18 01:25 09/07/18 01:25 09/07/18 01:25 09/07/18 01:25 <Bertha Miller - Last Filed: 09/07/18 19:41> ED Treatment Course - LABORATORY CBC & Chemistry Diagram: 09/07/18 03:46 09/07/18 03:46 - ADDITIONAL ORDERS Additional order review: Laboratory Results 09/07/18 09/07/18 09/07/18 07:33 05:52 03:46 Sodium Potassium Chloride Carbon Dioxide Anion Gap BUN Creatinine Creat Clearance w eGFR Random Glucose Calcium Magnesium 1.8 Total Bilirubin AST ALT Alkaline Phosphatase Troponin I < 0.02 < 0.02 Total Protein Albumin Lipase 117 Urine Color Yellow Urine Appearance Clear Urine pH 5.0 Ur Specific [place] 1.022 Urine Protein Negative Urine Glucose (UA) Negative Urine Ketones Negative Urine Blood Negative Urine Nitrite Negative Urine Bilirubin Negative Urine Urobilinogen 0.2 Ur Leukocyte Esterase Negative Urine HCG, Qual Negative 09/07/18 03:46 Sodium 134 L Potassium 3.5 Chloride 99 Carbon Dioxide 28 Anion Gap 7 L BUN 12 Creatinine 0.8 Creat Clearance w eGFR 79.05 Random Glucose 115 H Calcium 8.8 Magnesium Total Bilirubin 0.2 AST 35 ALT 38 Alkaline Phosphatase 104 Troponin I Total Protein 8.3 H Albumin 3.8 Lipase Urine Color Urine Appearance Urine pH Ur Specific [place] Urine Protein Urine Glucose (UA) Urine Ketones Urine Blood Urine Nitrite Urine Bilirubin Urine Urobilinogen Ur Leukocyte Esterase Urine HCG, Qual 09/07/18 03:46 RBC 4.94 MCV 77.7 L MCHC 32.9 RDW 17.9 H MPV 10.0 Neutrophils % 48.1 Lymphocytes % 46.4 H Monocytes % 4.4 Eosinophils % 0.8 D Basophils % 0.3 - Medications Given in the ED: ED Medications Discontinued Medications Generic Name Dose Route Start Last Admin Trade Name Freq PRN Reason Stop Dose Admin Sodium Chloride 1,000 mls @ 1,000 mls/hr 09/07/18 03:35 09/07/18 03:47 Normal Saline - IV 09/07/18 04:34 1,000 mls/hr ASDIR STA Administration Metoclopramide HCl 10 mg 09/07/18 03:35 09/07/18 03:47 Reglan Injection - IVPB 09/07/18 03:36 10 mg ONCE ONE Administration <Gage Adamson - Last Filed: 09/07/18 09:50> - LABORATORY CBC & Chemistry Diagram: 09/07/18 03:46 09/07/18 03:46 - ADDITIONAL ORDERS Additional order review: Laboratory Results 09/07/18 09/07/18 09/07/18 05:52 03:46 03:46 Sodium 134 L Potassium 3.5 Chloride 99 Carbon Dioxide 28 Anion Gap 7 L BUN 12 Creatinine 0.8 Creat Clearance w eGFR 79.05 Random Glucose 115 H Calcium 8.8 Magnesium 1.8 Total Bilirubin 0.2 AST 35 ALT 38 Alkaline Phosphatase 104 Troponin I < 0.02 Total Protein 8.3 H Albumin 3.8 Lipase 117 Urine Color Yellow Urine Appearance Clear Urine pH 5.0 Ur Specific [place] 1.022 Urine Protein Negative Urine Glucose (UA) Negative Urine Ketones Negative Urine Blood Negative Urine Nitrite Negative Urine Bilirubin Negative Urine Urobilinogen 0.2 Ur Leukocyte Esterase Negative 09/07/18 03:46 RBC 4.94 MCV 77.7 L MCHC 32.9 RDW 17.9 H MPV 10.0 Neutrophils % 48.1 Lymphocytes % 46.4 H Monocytes % 4.4 Eosinophils % 0.8 D Basophils % 0.3 - Medications Given in the ED: ED Medications Discontinued Medications Generic Name Dose Route Start Last Admin Trade Name Freq PRN Reason Stop Dose Admin Sodium Chloride 1,000 mls @ 1,000 mls/hr 09/07/18 03:35 09/07/18 03:47 Normal Saline - IV 09/07/18 04:34 1,000 mls/hr ASDIR STA Administration Metoclopramide HCl 10 mg 09/07/18 03:35 09/07/18 03:47 Reglan Injection - IVPB 09/07/18 03:36 10 mg ONCE ONE Administration <Bertha Miller - Last Filed: 09/07/18 19:41> Medical Decision Making - Medical Decision Making 09/07/18 09:50 trop neg x2, cxr wnl. wbc 18 c/w baseline leukemia. per signout plan, will d/c to outpt f/u. pt well appearing, agrees with plan, family at bedside, they understand return criteria. <Gage Adamson - Last Filed: 09/07/18 09:50> - Medical Decision Making 09/07/18 07:[address] Shah 42yo F with PMH of Leukemia, HTN and DM presents to the emergency department with left arm pain with concurrent chest pain and headaches x 2months however L arm pain is new. Per the patient, she has not been taking her medications for the past 2-3 months and a recent urgent care visit showed her SBP in the 170s. -labs, reglan, fluids labs show WBC 18 initial troponin negative. pending UPT-->CXR, 2nd trop. 09/07/18 19:41 2nd trop normal and CXR normal. Will DC home. given pt referral to cardiology. Given return precautions <Bertha Miller - Last Filed: 09/07/18 19:41> *DC/Admit/Observation/Transfer <Gage Adamson - Last Filed: 09/07/18 09:50> - Discharge Dispostion Decision to Admit order: No <Bertha Miller - Last Filed: 09/07/18 19:41> Diagnosis at time of Disposition: Chest pain Qualifiers: Chest pain type: unspecified Qualified Code(s): R07.9 - Chest pain, unspecified - Discharge Dispostion Disposition: HOME Condition at time of disposition: Improved - Referrals Referrals: Hayden Simon MD [Staff Physician] - - Patient Instructions Printed Discharge Instructions: DI for Atypical Chest Pain Additional Instructions: You were seen in the emergency room today for chest pain. All of your tests were normal. I do not know the exact cause of your pain, but it could be due to the muscles. You can take tylenol for the pain as needed. I recommend making an appointment with your primary care doctor this week. I also recommend making an appointment with a bead wire taper. You can be referred to one by your primary care doctor or you can see Dr. Simon. Come back to the emergency room if pain gets worse, you have a hard time breathing, you pass out, you have palpitations or if any new concerning symptom develops. Thank you
--- NOTE | 2018-09-07 07:54 | PDOC ---
Attending Attestation - Resident Resident Name: Kian Shah - ED Attending Attestation I have performed the following: I have examined & evaluated the patient, The case was reviewed & discussed with the resident, I agree w/resident's findings & plan, Exceptions are as noted - HPI HPI: 09/07/18 07:54 Agree with resident history - Physicial Exam PE: 09/07/18 07:54 GENERAL: Awake, alert, and fully oriented, in no acute distress HEAD: No signs of trauma, no bony ttp EYES: PERRLA, EOMI, sclera anicteric, conjunctiva clear ENT: Oropharynx clear without exudates. Moist mucosa NECK: Normal ROM, supple, no lymphadenopathy, JVD, or masses LUNGS: Breath sounds equal, clear to auscultation bilaterally. No wheezes, and no crackles HEART: Regular rate and rhythm, normal S1 and S2, no murmurs, rubs or gallops ABDOMEN: Soft, nontender, normoactive bowel sounds. No guarding, no rebound. No masses EXTREMITIES: Normal range of motion, no edema. No cords, erythema, or tenderness BACK: No midline spinal tenderness in cervical/thoracic/lumbar region NEUROLOGICAL: Normal speech, cranial nerves intact, 5/5 strength in all 4 extremities, normal sensation to light touch in all 4 extremities, normal cerebellar exam, normal gait SKIN: Warm, Dry, normal turgor, no rashes or lesions noted. - Medical Decision Making 09/07/18 08:00 42 yo F with a hx of HTN, leukemia (on surveillance, no chemotherapy) and DM presents to the emergency department with left arm pain with concurrent chest pain and headaches for 1 day. DDx includes ACS vs MSK pain vs PNA Unlikely PE as pt denies SOB, pleuritic pain, has no calf swelling or ttp, and HR/O2 sat wnl Initial trop neg, labs with leukocytosis to 18 which is consistent with past values. Plan to check UA/CXR to r/o infection, as well as second trop and reassess pt Case signed out to oncoming day attending for futher mgmt/dispo
[2018-09-07 08:23] LABS: HCG,QUALITATIVE URINE Negative
[2018-09-07 10:00] VITALS: BP 146/72
--- NOTE | 2018-09-07 10:08 | EKG ---
Test Reason : Blood Pressure : / mmHG Vent. Rate : 065 BPM Atrial Rate : 065 BPM P-R Int : 162 ms QRS Dur : 084 ms QT Int : 460 ms P-R-T Axes : 056 007 055 degrees QTc Int : 478 ms NORMAL SINUS RHYTHM WITH SINUS ARRHYTHMIA POSSIBLE LEFT ATRIAL ENLARGEMENT LEFT VENTRICULAR HYPERTROPHY NONSPECIFIC T WAVE ABNORMALITY PROLONGED QT ABNORMAL ECG WHEN COMPARED WITH ECG OF 26-JUN-2018 23:00, NO SIGNIFICANT CHANGE WAS FOUND Confirmed by ADELE HINTON MD ([id number]) on 09/07/2018 10:08:23 AM Referred By: Confirmed By:ADELE HINTON MD
== END 2018-09-07 10:00 | disposition home or self-care (01) ==
LOC: JER 01:25
PROC: 3E033GC Introduction of Other Therapeutic Substance into Peripheral Vein, Percutaneous Approach (ICD-10-PCS; principal; 2018-09-07)
DX: R07.9 Chest pain, unspecified (principal); I10 Essential (primary) hypertension; E11.9 Type 2 diabetes mellitus without complications
CPT/HCPCS: 36415; 71046-TC-FY; 80053; 81003; 83690; 83735; 84484; 84703; 85025; 87086; 93005; 93010; 96374; 99285-25; J7030

== ENCOUNTER 2024-09-03 05:26 | Day surgery (SDC) | payer OTHER ==
[2024-08-31 11:51] VITALS: BMI 36.3
[2024-09-03] MEDS ORDERED: BUPIVACAINE HCL/PF 0.75% 10 ML VIAL ONE (07:10)
[2024-09-03] MEDS ORDERED: LIDOCAINE HCL/PF 1% SDV 5ML VIAL ONE (07:10)
[2024-09-03 13:14] VITALS: BP 136/75; PULSE 73; RESP 16; TEMP 97.8
== END 2024-09-03 13:52 | disposition home or self-care (01) ==
LOC: JASU-SURG 05:26
PROVIDERS: ATTEND Pain Medicine Pain Medicine
PROC: 3E0T3BZ Introduction of Anesthetic Agent into Peripheral Nerves and Plexi, Percutaneous Approach (ICD-10-PCS; principal; 2024-09-03 12:58)
DX: M47.816 Spondylosis without myelopathy or radiculopathy, lumbar region (principal)
CPT/HCPCS: 76000-TC-FY; 81025

== ENCOUNTER 2024-10-22 06:53 | Day surgery (SDC) | payer OTHER ==
[2024-10-21 15:30] VITALS: BMI 35.3
[2024-10-22] MEDS ORDERED: ACETAMINOPHEN 500 MG TABLET (FP) PO PRN (14:23)
[2024-10-22 16:34] VITALS: RESP 20
[2024-10-22] MEDS: LIDOCAINE HCL 1% PRESERVATIVE FREE - 30ML VIAL IJ ONE (17:57)
[2024-10-22] MEDS: BUPIVACAINE HCL/PF 0.5% (5 MG/ML) 30 ML VIAL IJ ONE (17:57)
[2024-10-22] MEDS: DEXAMETHASONE SOD PHOSPHATE 10 MG/1 ML VIAL IM ONE (17:58)
[2024-10-22 18:30] VITALS: BP 127/68; PULSE 62; TEMP 97.3
== END 2024-10-22 18:25 | disposition home or self-care (01) ==
LOC: JASU-SURG 06:53
PROVIDERS: ATTEND Pain Medicine Pain Medicine
PROC: X05133A Destruction of Renal Sympathetic Nerve(s) using Radiofrequency Ablation, Percutaneous Approach, New Technology Group 10 (ICD-10-PCS; principal; 2024-10-22 17:00)
DX: M47.816 Spondylosis without myelopathy or radiculopathy, lumbar region (principal)
CPT/HCPCS: 76000-TC-FY; 81025; J1100

== ENCOUNTER 2024-12-31 06:12 | Day surgery (SDC) | payer OTHER ==
[2024-12-29 12:54] VITALS: BMI 35.5
[2024-12-31] MEDS ORDERED: ACETAMINOPHEN 500 MG TABLET (FP) PO PRN (08:43)
[2024-12-31 14:24] VITALS: RESP 20
[2024-12-31] MEDS: BUPIVACAINE HCL/PF 0.75% 10 ML VIAL NR ONE (15:03)
[2024-12-31] MEDS: LIDOCAINE HCL 1% PRESERVATIVE FREE - 30ML VIAL IJ ONE ×2 (15:05)
[2024-12-31] MEDS: LIDOCAINE HCL/PF 2% SDV 5ML VIAL INF ONE (15:05)
[2024-12-31 16:08] VITALS: BP 128/78; PULSE 62; TEMP 97
== END 2024-12-31 16:20 | disposition home or self-care (01) ==
LOC: JASU-SURG 06:12
PROVIDERS: ATTEND Pain Medicine Pain Medicine
PROC: 015B3ZZ Destruction of Lumbar Nerve, Percutaneous Approach (ICD-10-PCS; principal; 2024-12-31 13:15)
DX: M47.816 Spondylosis without myelopathy or radiculopathy, lumbar region (principal)
CPT/HCPCS: 76000-TC-FY; 81025